=== PATIENT | female | born 2000 | race Two or more races ===

== ENCOUNTER 2020-11-02 07:59 | Emergency (ER) | payer OTHER ==
[~2020-11-02] VITALS: Ht 152.4 cm; Wt 44.5 kg
== END 2020-11-02 12:45 | disposition home or self-care (01) ==
LOC: ER 07:59
DX: S00.33XA Contusion of nose, initial encounter (principal); W22.8XXA Striking against or struck by other objects, initial encounter; Y93.89 Activity, other specified; Y92.89 Other specified places as the place of occurrence of the external cause; Y99.8 Other external cause status